=== PATIENT | male | born 1995 | race Caucasian/White ===

== ENCOUNTER 2020-08-16 20:56 | Emergency (ER) | payer SELFPAY ==
[2020-08-16 22:14] VITALS: BP 113/54; PULSE 68
[2020-08-16] MEDS ORDERED: Sodium Chloride 0.9% 10 ML Syringe FLUSH PRN (22:58)
[2020-08-16] MEDS ORDERED: Iopamidol 612 MG/ML 150 ML Bottle IV STA (23:27)
--- NOTE | 2020-08-17 00:12 | EDM.PDOC ---
ED HPI GENERAL MEDICAL PROBLEM - General Chief Complaint: Abdominal Pain Stated Complaint: RIGHT LOWER STOMACH PAIN Time Seen by Provider: 08/16/20 22:51 Source of Information: Reports: Patient History Limitations: Reports: No Limitations - History of Present Illness INITIAL COMMENTS - FREE TEXT/NARRATIVE: Franklin is a 24-year-old male presenting to the ED for evaluation of inte rmittent abdominal pain. Patient states that he has been having it for the last 4 weeks. The pain states that it usually crampy in nature and moves around. It is associated with nausea and sometimes bilious emesis. Patient denies any fever but has had intermittent chills. The patient does not seem overly concerned as he works and cannot get into the walk-in clinic for evaluation he decided to come to the ER [facility]. He just wanted to make sure he did not have appendicitis. - Related Data Allergies Allergy/AdvReac Type Severity Reaction Status Date / Time amoxicillin Allergy Rash Verified 08/16/20 22:33 Home Meds: Home Meds NK [No Known Home Meds] 08/16/20 [History] Past Medical History - Past Health History Medical/Surgical History: Denies Medical/Surgical History Musculoskeletal History: Reports: Fracture Neurological History: Reports: Concussion Social & Family History - Tobacco Use Tobacco Use Status *Q: Current Some Day Tobacco User Years of Tobacco use: 5 Packs/Tins Daily: 0.5 - Caffeine Use Caffeine Use: Reports: Coffee, Energy Drinks, Soda, Tea - Alcohol Use Days Per Week of Alcohol Use: 2 Number of Drinks Per Day: 1 Total Drinks Per Week: 2 - Recreational Drug Use Recreational Drug Use: No Recreational Drug Type: Reports: Marijuana/Hashish ED ROS GENERAL - Review of Systems Review Of Systems: See Below Constitutional: Reports: No Symptoms HEENT: Reports: No Symptoms Respiratory: Reports: No Symptoms Cardiovascular: Reports: No Symptoms Endocrine: Reports: No Symptoms GI/Abdominal: Reports: Abdominal Pain (Periumbilical and right sided abdominal pain. Patient states the pain is worse in the morning and then goes away in the evening.), Nausea, Vomiting : Reports: No Symptoms Musculoskeletal: Reports: No Symptoms Skin: Reports: No Symptoms Neurological: Reports: No Symptoms Psychiatric: Reports: No Symptoms Hematologic/Lymphatic: Reports: No Symptoms Immunologic: Reports: No Symptoms ED EXAM, GI/ABD - Physical Exam Exam: See Below Exam Limited By: No Limitations General Appearance: Alert, No Apparent Distress Eyes: Bilateral: EOMI Throat/Mouth: Normal Inspection, Normal Oropharynx, Normal Voice, No Airway Compromise Head: Atraumatic, Normocephalic Neck: Normal Inspection, Supple Respiratory/Chest: No Respiratory Distress, Lungs Clear, Normal Breath Sounds Cardiovascular: Normal Peripheral Pulses, Regular Rate, Rhythm, No Murmur GI/Abdominal Exam: Normal Bowel Sounds, Tender (Mild tenderness in the periumbilical region. Mild tenderness in the right upper and lower quadrant.), Abnormal Bowel Sounds. No: Guarding, Rigid, Rebound Back Exam: Normal Inspection, Full Range of Motion Extremities: Normal Inspection, Normal Range of Motion Neurological: Alert, Oriented, Normal Cognition, No Motor/Sensory Deficits Psychiatric: Normal Affect, Normal Mood Skin Exam: Warm, Dry, Intact, Normal Color Lymphatic: No Adenopathy Course - Vital Signs Last Recorded V/S: Last Vital Signs Temp 36.7 C 08/16/20 22:32 Pulse 68 08/16/20 22:32 Resp 16 08/16/20 22:32 BP 113/54 L 08/16/20 22:32 Pulse Ox 96 08/16/20 22:32 - Orders/Labs/Meds Orders: Active Orders 24 hr Category Date Time Status Sodium Chloride 0.9% [Saline Flush] Med 08/16/20 22:58 Active 10 ml FLUSH ASDIRECTED PRN Saline Lock Insert [OM.PC] Routine Oth 08/16/20 22:58 Ordered Medication Orders Sodium Chloride (Sodium Chloride 0.9% 10 Ml Syringe) 10 ml FLUSH ASDIRECTED PRN PRN Reason: Keep Vein Open Last Admin: 08/16/20 23:22 Dose: 10 ml Documented by: RASHAD Labs: Laboratory Tests 08/16/20 08/16/20 Range/Units 23:12 23:12 WBC 7.1 (4.5-11.0) K/uL RBC 5.03 (4.30-5.90) M/uL Hgb 14.7 (12.0-15.0) g/dL Hct 43.8 (40.0-54.0) % MCV 87 (80-98) fL MCH 29 (27-31) pg MCHC 34 (32-36) % Plt Count 280 (150-400) K/uL Neut % (Auto) 45.7 (36-66) % Lymph % (Auto) 38.0 (24-44) % [place] % (Auto) 9.9 H (2-6) % Eos % (Auto) 5.5 H (2-4) % Baso % (Auto) 0.9 (0-1) % Sodium 142 (140-148) mmol/L Potassium 4.0 (3.6-5.2) mmol/L Chloride 103 (100-108) mmol/L Carbon Dioxide 29 (21-32) mmol/L Anion Gap 10.4 (5.0-14.0) mmol/L BUN 22 H (7-18) mg/dL Creatinine 1.1 (0.8-1.3) mg/dL Est Cr Clr Drug Dosing 105.34 mL/min Estimated GFR (MDRD) > 60 (>60) Glucose 99 (74-106) mg/dL Calcium 8.9 (8.5-10.1) mg/dL Total Bilirubin 0.5 (0.2-1.0) mg/dL AST 22 (15-37) U/L ALT 38 (12-78) U/L Alkaline Phosphatase 101 (46-116) U/L Total Protein 6.8 (6.4-8.2) g/dL Albumin 3.8 (3.4-5.0) g/dL Globulin 3.0 (2.3-3.5) g/dL Albumin/Globulin Ratio 1.3 (1.2-2.2) Meds: Medications Generic Name Dose Route Start Last Admin Trade Name Amanda PRN Reason Stop Dose Admin Sodium Chloride 10 ml 08/16/20 22:58 08/16/20 23:22 Sodium Chloride 0.9% 10 Ml Syringe FLUSH 10 ml ASDIRECTED PRN Administration Keep Vein Open Discontinued Medications Generic Name Dose Route Start Last Admin Trade Name Amanda PRN Reason Stop Dose Admin Sodium Chloride 77 mls @ 3.5 mls/sec 08/16/20 23:28 08/16/20 23:33 Normal Saline IV 08/16/20 23:29 3.5 mls/sec ASDIRECTED STA Administration Iopamidol 122 ml 08/16/20 23:27 08/16/20 23:33 Iopamidol 612 Mg/Ml 150 Ml Bottle IV 08/16/20 23:28 150 ml . DIRECTED STA Administration - Radiology Interpretation Free Text/Narrative:: I reviewed the CT of the abdomen and pelvis with contrast demonstrating normal intestinal anatomy including the appendix. The stomach is markedly distended with contents. There is no acute abnormality seen on the CT. I reviewed the report from [facility] basically confirming my suspicions on my interpretation. - Re-Assessments/Exams Free Text/Narrative Re-Assessment/Exam: 08/17/20 00:08 I reviewed the patient's labs showing a normal CBC and comprehensive metabolic panel. Departure - Departure Time of Disposition: 00:51 Disposition: Home, Self-Care 01 Clinical Impression: Right lower quadrant abdominal pain Nausea and vomiting Qualifiers: Vomiting type: unspecified Vomiting Intractability: intractable Qualified Code(s): R11.2 - Nausea with vomiting, unspecified - Discharge Information Instructions: Nausea and Vomiting, Adult, [id number], Abdominal Pain, Adult, [id number] Referrals: PCP,None [Primary Care Provider] - Forms: ED Department Discharge Care Plan Goals: Your evaluation today shows normal labs and a CT of the abdomen and pelvis with contrast. There was no sign for acute appendicitis. There were no structural abnormalities apparent on your work-up today. My recommendation would be doing a dietary diary to see if there is some foods that you are eating that may be triggering this. I do not see any evidence for diverticulitis or diverticulosis developing. There is no evidence for either kidney stones or gallstones at this time. Sepsis Event Note (ED) - Evaluation Sepsis Screening Result: No Definite Risk - Focused Exam Vital Signs: Vital Signs Temp Pulse Resp BP Pulse Ox 08/16/20 22:32 36.7 C 68 16 113/54 L 96 08/16/20 22:12 36.7 C 68 16 113/54 L 96 - Problem List & Annotations (1) Nausea and vomiting SNOMED Code(s): 25643713 Code(s): R11.2 - NAUSEA WITH VOMITING, UNSPECIFIED Status: Acute Priority: High Current Visit: Yes Qualifiers: Vomiting type: unspecified Vomiting Intractability: intractable Qualified Code(s): R11.2 - Nausea with vomiting, unspecified (2) Right lower quadrant abdominal pain SNOMED Code(s): 571002683 Code(s): R10.31 - RIGHT LOWER QUADRANT PAIN Status: Acute Priority: High Current Visit: Yes - Problem List Review Problem List Initiated/Reviewed/Updated: Yes - My Orders Last 24 Hours: My Active Orders 08/16/20 22:58 Sodium Chloride 0.9% [Saline Flush] 10 ml FLUSH ASDIRECTED PRN Saline Lock Insert [OM.PC] Routine - Assessment/Plan Last 24 Hours: My Active Orders 08/16/20 22:58 Sodium Chloride 0.9% [Saline Flush] 10 ml FLUSH ASDIRECTED PRN Saline Lock Insert [OM.PC] Routine
--- NOTE | 2020-08-17 00:33 | CRLCT ---
For Patients: As a result of the Century Cures Act, medical imaging exams and procedure reports are released immediately into your electronic medical record. You may view this report before your referring provider. If you have questions, please contact your health care provider. INDICATION: Periumbilical pain TECHNIQUE: Axial images were obtained from the diaphragm to the pubic symphysis. Reformats were obtained in the coronal and sagittal plane. IV Contrast: 122 cc Isovue-300 Oral Contrast: None COMPARISON: None. FINDINGS: Lower chest: Unremarkable. Liver: Unremarkable. Normal in size and attenuation. No masses. Gallbladder and bile ducts: Unremarkable. No stones or inflammation. No biliary dilatation. Spleen: Unremarkable. Normal in size without mass. Pancreas: Unremarkable. No mass or inflammation. Adrenal glands: Unremarkable. No nodules. Kidneys: Unremarkable. No masses, stones, or hydronephrosis. Vasculature: Unremarkable. GI tract: The stomach is unremarkable. No dilated loops of large or small intestine. Appendix is seen and is unremarkable. Pelvis: Unremarkable. Bones: Unremarkable for age. IMPRESSION: Unremarkable abdomen and pelvis CT. Please note that all CT scans at this facility use dose modulation, iterative reconstruction, and/or weight-based dosing when appropriate to reduce radiation dose to as low as reasonably achievable. Dictated by Pradeep Rodriguez MD @ 08/17/2020 12:31:[address] Pradeep Rodriguez @ Aug 17 2020 12:31AM
== END 2020-08-17 00:59 | disposition home or self-care (01) ==
LOC: JP.ED 20:56
DX: R10.31 Right lower quadrant pain (principal); R11.2 Nausea with vomiting, unspecified; Z72.0 Tobacco use; Z88.0 Allergy status to penicillin
CPT/HCPCS: 36415; 74177; 80053; 85025; 99283; 99284; Q9967